=== PATIENT | female | born 1950 | race Caucasian/White ===

== ENCOUNTER 2016-09-12 16:57 | Emergency (ER) | payer OTHER ==
[~2016-09-12] VITALS: Ht 165.1 cm; Wt 73.3 kg
[~2016-09-12 16:57] MED LIST: COMPAZINE10 MG PO; DECADRON4 MG PO; LOTREL 5/101 CAPSULE PO; LOVASTATIN20 MG PO; SELENIUM200 MC3 PO; VITAMIN D-32000 UNI2 PO
[2016-09-12 18:12] LABS: HEMATOCRIT 40.8 % (36.0-46.0); MCH 31.7 PG (29.0-34.0); MCHC 33.8 G/DL (30.0-36.0); MCV 93.6 FL (83-99); MEAN PLAT.VOLUME 10.5 uM^3 (9.5-12.4); PLATELET COUNT 213 K/uL (156-360); RBC DIS.WIDTH-CV 12.4 % (11.8-14.6); RBC DIS.WIDTH-SD 43.3 % (39-53); RED BLOOD COUNT 4.36 M/uL (3.80-5.20); WHITE BLOOD COUNT 11.4 K/uL (4.1-10.2)
[2016-09-12 18:22] LABS: CHLORIDE 107 mEq/L (99-109); POTASSIUM 4.1 mEq/L (3.7-5.4); SODIUM 138 mEq/L (136-147)
[2016-09-12 18:24] LABS: GLUCOSE 109 mg/dL (70-99)
[2016-09-12 18:25] LABS: ANION GAP 6 MEQ/L (2-14)
[2016-09-12 18:28] LABS: GFR ESTIMATE (CALCULATED) > 59 mL/min/
[2016-09-12 18:29] LABS: UREA NITROGEN (BUN) 19 mg/dL (9-23)
[2016-09-12 18:47] LABS: ADD MIUA? YES; BILIRUBIN NEGATIVE; BLOOD SMALL; COLOR YELLOW ((YELLOW)); GLUCOSE (STRIP) NEGATIVE; KETONES 5; LEUKOCYTES NEGATIVE; NITRITE NEGATIVE; PROTEIN (STRIP) NEGATIVE; SPECIFIC GRAVITY 1.016 (1.000-1.030); UROBILINOGEN 0.2 MG/DL (0.2-1.0)
[2016-09-12 18:54] LABS: BACTERIA NONE SEEN /HPF; EPITHELIAL CELLS NONE SEEN /HPF; MUCUS TRACE /LPF; RED BLOOD CELLS 15-20 /HPF (0-5); UCUL ADDED? NO; WHITE BLOOD CELLS 0-5 /HPF (0-5)
[2016-09-12] MEDS ORDERED: FLOMAX0.4 MG PO (20:02)
[2016-09-12 20:43] VITALS: BP 151/75
== END 2016-09-12 20:45 | disposition home or self-care (01) ==
LOC: EME 16:57
DX: N20.0 Calculus of kidney (principal); E78.5 Hyperlipidemia, unspecified; I10 Essential (primary) hypertension; Z87.442 Personal history of urinary calculi
CPT/HCPCS: 80048; 81003; 85027; 99281; 99284